=== PATIENT | male | born 1955 | race Caucasian/White ===

== ENCOUNTER 2022-07-25 19:56 | Emergency (ER) | payer OTHER ==
[2022-07-25 20:02] VITALS: BP 175/82; PULSE 75; RESP 18; TEMP 98.4; BMI 27.4
[2022-07-25] MEDS ORDERED: IBUPROFEN 600 MG TABLET (FP) PO ONE (21:03)
== END 2022-07-25 22:37 | disposition home or self-care (01) ==
LOC: JERFT 19:56
DX: K08.89 Other specified disorders of teeth and supporting structures (principal)
CPT/HCPCS: 99283-25

== ENCOUNTER 2024-07-18 18:26 | Emergency (ER) | payer OTHER ==
[2024-07-18 19:01] VITALS: TEMP 98.3; BMI 26.8
[2024-07-18 20:03] LABS: BASO % 0.3 % (0-2.0); EOS % 1.6 % (0-4.5); HEMATOCRIT 40.1 % (35.4-49); HEMOGLOBIN 13.3 GM/dL (11.7-16.9); LYMPH % 7.1 % (8-40); MCH 29.7 pg (25.7-33.7); MCHC 33.2 g/dl (32.0-35.9); MEAN CELL VOLUME 89.3 fl (80-96); MEAN PLT VOLUME 7.8 fl (7.5-11.1); MONO % 5.9 % (3.8-10.2); NEUT % 85.1 % (42.8-82.8); PLATELET COUNT 330 10^3/uL (134-434); RDW 13.4 % (11.9-15.9); WHITE BLOOD COUNT 15.6 K/mm3 (4.0-10.0)
[2024-07-18 20:18] LABS: POTASSIUM 4.1 mmol/L (3.5-5.1)
[2024-07-18 20:20] LABS: CALCIUM 8.9 mg/dL (8.5-10.1)
[2024-07-18 20:21] LABS: BLOOD UREA NITROGEN 21.7 mg/dL (7-18)
[2024-07-18 20:22] LABS: INR 1.15 (0.83-1.09); PROTHROMBIN TIME (PATIENT) 12.5 SEC (9.7-13.0)
[2024-07-18 20:24] LABS: CREATININE 1.6 mg/dL (0.55-1.3)
[2024-07-18 20:25] LABS: ACTIVATED PTT 25.9 SECONDS (25.2-36.5); TOT PROT 7.3 g/dl (6.4-8.2)
[2024-07-18 20:26] LABS: BILIRUBIN,TOTAL 0.6 mg/dL (0.2-1)
[2024-07-18] MEDS: SODIUM CHLORIDE 1,000 ML IV STA (20:59)
[2024-07-19 00:38] VITALS: BP 114/73; PULSE 66; RESP 16
== END 2024-07-19 00:40 | disposition home or self-care (01) ==
LOC: JER 18:26
PROC: 3E0337Z Introduction of Electrolytic and Water Balance Substance into Peripheral Vein, Percutaneous Approach (ICD-10-PCS; principal; 2024-07-18)
DX: R42 Dizziness and giddiness (principal); R61 Generalized hyperhidrosis
CPT/HCPCS: 36415; 71045-TC-FY; 80053; 83735; 84484; 85025; 85610; 85730; 93005; 93010; 96360; 99285-25